=== PATIENT | male | born 1975 | race Caucasian/White ===

== ENCOUNTER → 2021-02-03 | Outpatient (CLI) | payer OTHER ==
[~2021-02-03] MED LIST: MAGNESIUM250 M1 PO; MULTIPLE VITAM1 EAC4 PO; VITAMIN D375 MCG PO
== END ==
LOC: LAB 08:48
PROVIDERS: Student in an Organized Health Care Education/Training Program; ATTEND Orthopaedic Surgery Sports Medicine
DX: Z01.812 Encounter for preprocedural laboratory examination (principal); Z20.822 Contact with and (suspected) exposure to COVID-19

== ENCOUNTER 2021-02-04 13:51 | Day surgery (SDC) | payer OTHER ==
[~2021-02-04] VITALS: Ht 188 cm; Wt 179.2 kg
--- NOTE | ~2021-02-04 | O ---
[facility] [place] [address] OPERATIVE REPORT Name: TARYN RUSSELL Room #: DEP [facility] Otoniel#: [id number] Admission: 02/04/21 Attend Phys: Elias Romero Discharge: 02/04/21 Date of : 71 Report #: [id number] THIS REPORT FOR: cc: FAM - No family physician/PCP FAM - No family physician/PCP Elias Tavarez MD ~ DOC #: [id number] Elias Tavarez MD DATE OF SERVICE: 02/04/2021 PREOPERATIVE DIAGNOSIS: Right distal biceps tendon tear. POSTOPERATIVE DIAGNOSIS: Right distal biceps tendon tear. PROCEDURE PERFORMED: Open right distal biceps tendon repair. SURGEON: Elias Tavarez MD. ASSEMBLY MECHANIC: Marie Matute PA-C. ANESTHESIA: General. FLUIDS: 800 mL crystalloid. IMPLANTS: Arthrex distal biceps tendon button and repair system. DESCRIPTION OF PROCEDURE: After proper identification of the patient and the operative site in preoperative holding area, the operative site signed by myself. Prophylactic antibiotics given. The patient discussed the anesthetic options with Anesthesia. He was brought back to the operative suite after induction of satisfactory general anesthesia per LMA. The right upper extremity was sterilely prepped and draped in the usual manner. Sterile tourniquet was applied. The limb was elevated and exsanguinated with an Esmarch. Tourniquet was inflated at 250 mmHg. An incision overlying the proximal forearm was planned starting at the elbow flexion crease and extending distally in an oblique manner. The skin only was incised sharply. Subcutaneous tissues were carefully spread bluntly. Subcutaneous veins were protected and then the interval along the brachioradialis and mobile wad of 3 and was followed from the flexor pronator muscle group. The biceps tendon sheath was noted just under the radial recurrent vasculature, which were clipped with Ligaclips and cauterized with bipolar cautery and then divided. This allowed excellent exposure of the radial tuberosity, which was carefully exposed with blunt retractors with a hand in a fully supinated position. A plascencia elevator and rongeur were used to remove some of the soft tissue still attached to the tuberosity. This area was thoroughly irrigated. Next biceps tendon sheath was followed proximally. The retracted biceps tendon was noted. There was significant fraying for a portion [address] [address] OPERATIVE REPORT Name: RUSSELLMONIKTARYN Room #: DEP [facility] Otoniel#: [id number] Admission: 02/04/21 Attend Phys: Elias Romero Discharge: 02/04/21 Date of : 71 Report #: [id number] of the tendon and then the retracted stump was pulled into the wound and under direct visualization, the frayed portion of the tendon was trimmed. The patient had a large tendon. It measured 9 mm in diameter and a #2 Fiber[address] was utilized to place a whipstitch on this tendon at its distal end was tapered slightly to better accommodate insertion into the bone tunnel and the bone tunnel was prepared. The margins of the radial tuberosity were identified. The guide pin position was carefully positioned. It passed through the near and then just into the far cortex and was stopped and so did not penetrate further into the soft tissues. A 9 mm acorn reamer was then used to ream the bone tunnel with bone debris carefully removed with irrigation. These instruments were removed. There was a solid bone tunnel. The Arthrex distal biceps tendon button was held in place while the #2 FiberWires were passed through this. The insertion handle was utilized where the arm was flexed in approximately 70 degrees of flexion and fully supinated to pass the button, assumes that was passed through the far cortex. It was toggled. The tendon was carefully and gradually tensioned into the tunnel until it was fully seated. Sutures were then tied with an arthroscopic knot pusher and due to the tendon volume, I did not feel like there was sufficient room for an interference screw and this was stable. The wound was thoroughly irrigated with normal saline, tourniquet was deflated. There was excellent hemostasis and subcutaneous tissues were closed with 2-0 Vicryl followed by running 4-0 Monocryl. This was sealed with Dermabond. After the skin had been reprepped, the patient was then placed in a sterile dressing as well as a posterior splint in approximately 70 degrees of flexion in a supinated position. At time of dictation, the patient was still in the operative suite with anticipated discharge to the recovery room in stable condition. MD WILLI Jimenez/SYED By: [id number] Elias Tavarez MD /ivanna
== END 2021-02-04 19:22 | disposition home or self-care (01) ==
LOC: OR → TBA 14:00 → OR 14:20
PROVIDERS: ATTEND Orthopaedic Surgery Sports Medicine
DX: S46.211A Strain of muscle, fascia and tendon of other parts of biceps, right arm, initial encounter (principal); M79.601 Pain in right arm; K21.9 Gastro-esophageal reflux disease without esophagitis; G47.30 Sleep apnea, unspecified; X58.XXXA Exposure to other specified factors, initial encounter; Y93.89 Activity, other specified; Y92.89 Other specified places as the place of occurrence of the external cause; Y99.8 Other external cause status; Z98.890 Other specified postprocedural states; Z79.899 Other long term (current) drug therapy
CPT/HCPCS: 50010; 50101; 50386; 51301; 56524; 56526; 57006; 57091; 57179; 58760; 62110; 62900; 65060; 70005